=== PATIENT | male | born 1955 | race Caucasian/White ===

== ENCOUNTER → 2023-08-27 07:25 | Outpatient (REF) | payer OTHER, SELFPAY | LOC: PAVMRI 07:25 | PROVIDERS: ATTENDING PHYSICIAN Internal Medicine Cardiovascular Disease; FAMILY PHYSICIAN Family Medicine | DX: I25.10 Atherosclerotic heart disease of native coronary artery without angina pectoris (principal) | CPT/HCPCS: 70030; 75561; 75565; A9585 ==

== ENCOUNTER → 2023-12-16 09:17 | Outpatient (REF) | payer OTHER, SELFPAY | LOC: RCS 09:17 | PROVIDERS: ATTENDING PHYSICIAN Internal Medicine Cardiovascular Disease; FAMILY PHYSICIAN Family Medicine | DX: I10 Essential (primary) hypertension (principal); I25.5 Ischemic cardiomyopathy | CPT/HCPCS: 93306; Q9950 ==

== ENCOUNTER → 2024-08-30 06:57 | Outpatient (REF) | payer OTHER, SELFPAY | LOC: RAD 06:57 | PROVIDERS: ATTENDING PHYSICIAN Internal Medicine Cardiovascular Disease | DX: I73.9 Peripheral vascular disease, unspecified (principal) | CPT/HCPCS: 93922; 93925 ==

== ENCOUNTER → 2024-09-08 08:07 | Outpatient (REF) | payer OTHER, SELFPAY | LOC: RAD 08:07 | PROVIDERS: ATTENDING PHYSICIAN Surgery Vascular Surgery; FAMILY PHYSICIAN Family Medicine | DX: I73.9 Peripheral vascular disease, unspecified (principal); Z13.6 Encounter for screening for cardiovascular disorders | CPT/HCPCS: 75635; Q9967 ==

== ENCOUNTER 2024-10-28 08:00 | Emergency (ER) | payer OTHER, SELFPAY ==
[2024-10-28 08:02] VITALS: BP 155/70
--- NOTE | 2024-10-28 08:12 | ED.GENMED ---
History of Present Illness
General
Chief Complaint: Musculo-Skeletal Complaint
Source: patient and spouse
Exam Limitations: none
Time Seen by Provider: 10/28/24 08:05
Nursing documentation reviewed up to this point in time: agreed with
History of Present Illness
History of Present Illness:
69-year-old male with a past medical history of diabetes, CAD status post stents (sees Dr. Duarte for cardiology), PVD (follows with Dr. Keith for vascular surgery) who presents to the ER for evaluation of right foot pain. Patient reports symptoms
started Thursday evening and have been constant since that time (roughly 36 hours duration). He denies any trauma or injury to the foot. He has noticed redness and swelling mostly of the dorsum of the foot. He is having difficulty bearing weight
due to pain. He has not had any calf or knee pain on the right. He denies any chest pain or shortness of breath. Denies any fevers or chills. He denies any other complaints. He is on aspirin and Plavix for CAD.
Review of Systems
Review of Systems
All Other Systems: ROS reviewed and negative except as documented in HPI and ROS
Constitutional: Denies fever
Respiratory: Denies trouble breathing
Cardiac: Denies chest pain
Musculoskeletal: Reports edema (Swelling of the foot and ankle)
Skin: Reports other (Redness of the foot)
Phy Exam
Physical Exam
Physical Exam:
General: Awake, alert, oriented x3; no acute distress
Head: Normocephalic, atraumatic
Eyes: Conjunctiva normal, EOMI
Throat: Airway intact, handling secretions
Neck: Trachea midline, supple without meningismus
Lungs: Breathing comfortably with no respiratory distress, faint scattered expiratory wheezing throughout all lung vaughan
Heart: Regular rate and rhythm, no murmurs, gallops, or rubs appreciated
Neuro: No gross deficits
Skin: Patient has some erythema and warmth on the dorsum of the right foot but no wounds noted, no puncture patel or signs of trauma noted including examination between the toes
Extremities: Patient has swelling, erythema, warmth, tenderness across the entire dorsum of the right foot; also has some tenderness along the instep of the foot, no tenderness of the calcaneus, no tenderness of the medial or lateral malleolus, no
tenderness of the calf or knee on the right; he has strong right DP and PT pulses; left lower extremity no edema, warm and well-perfused
Scores
Heart Failure Risk
Heart Failure Risk Score: Not Applicable
Heart Score for Chest Pain Patients
STEMI patient?: Not applicable
Withdrawal Assessment of Alcohol
Withdrawal Assessment Completed?: Not applicable
Course
Orders/Labs/Results
Orders:
Orders
10/28/24 08:11
CR Foot - Right Min 3 Views Urgent
Comment:
Reason For Exam: midfoot pain and ttp
US Periph Venous LOWER Ext RT Urgent
Comment:
Reason For Exam: RLE pain, redness, swelling
10/28/24 08:16
CRP [C-Reactive Protein] Urgent
Complete Blood Count/With Diff Urgent
Comprehensive Metabolic Panel Urgent
ESR [Erythrocyte Sed Rate] Urgent
PTT Urgent
Prothrombin Time Urgent
10/28/24 08:25
Oxycodone [Roxicodone] 5 mg PO NOW STA
10/28/24 09:57
CeFAZolin 2 GRAM [Ancef] 2 grams in 10 ml IV NOW
10/28/24 09:59
Doxycycline [Vibramycin] 100 mg PO NOW STA
Abnormal Lab Results
10/28/24
08:16
WBC 11.7 H 10^3/uL
(4.8-10.8)
MCH 32.4 H pg
(27.0-31.0)
Absolute Neuts (auto) 9.0 H 10^3/uL
(1.4-6.5)
Absolute Monos (auto) 1.2 H 10^3/uL
(0.1-0.6)
Neutrophils % 76.7 H %
(42.2-75.2)
Lymphocytes % 12.1 L %
(20.5-51.1)
Monocytes % 9.8 H %
(1.7-9.3)
Glucose 192 H mg/dl
(70-99)
C-Reactive Protein 15.00 H mg/L
(0.0-10.00)
10/28/24 08:16
10/28/24 08:16
Vital Signs
Initial and Last Documented VS:
Initial Vital Signs
Temp Pulse Resp BP Pulse Ox
36.5 C 85 18 155/70 95
10/28/24 08:02 10/28/24 08:02 10/28/24 08:02 10/28/24 08:02 10/28/24 08:02
Last Documented Vital Signs
Temp Pulse Resp BP Pulse Ox
36.5 C 85 18 149/66 95
10/28/24 08:02 10/28/24 08:02 10/28/24 08:02 10/28/24 08:15 10/28/24 08:16
MDM/Problems Addressed
Differential Diagnosis Includes:
DVT, cellulitis, occult trauma; lower suspicion for arterial insufficiency/claudication given that leg is warm with good pulses
MDM/Problems Addressed:
69-year-old male presents for evaluation of atraumatic right foot pain x 36 hours. Vitals and exam as above. Will plan to check x-ray. Right lower extremity ultrasound to rule out DVT. Check basic labs, inflammatory markers. Reassess after the
above.
X-ray reviewed by me shows no acute fracture or other acute pathology. Ultrasound of the leg shows no DVT. Labs reviewed he does have a slight leukocytosis with WBC of 11.7 and predominant neutrophils. His CRP is elevated. At this point clinical
suspicion is for cellulitis. He does have some dry cracked skin on the feet which could be a portal for bacterial injury. He does have some risk factors for failure of oral antibiotics including diabetes and peripheral vascular disease�had a long
discussion with patient and his . He feels comfortable trialing an oral antibiotic as an outpatient but will return if symptoms or not improving or if they are worsening. Using shared decision making we will discharge with a trial of oral
antibiotics. Will cover with Keflex and doxycycline for strep and MRSA coverage. All questions answered.
Chronic conditions affecting care:
Diabetes, PAD
Acute Exacerbation and/or Progression of Chronic Illness:
Acutely hypertensive without signs or symptoms of hypertensive crisis�no indication for emergent antihypertensives
Acute Exacerbation and/or Progression of Chronic Illness: HTN
*Radiology
Radiology exam reviewed: radiology read reviewed
*Pulse Oximetry
Patient hypoxic: no
*Critical Care Note
Total Time (30-74mins, 75-104mins- exclusive of procedures): Not Applicable
Data Reviewed
Source: patient and spouse
Patient Management
Escalation/DeEscalation of care consider admission/obs:
Considered admission�shared decision making we will discharge with strict return precautions
ED Attending Note
-
Portions of this chart may have been created with voice recognition software.� Occasional wrong word or��sound alike� substitutions may have occurred due to the inherent limitations of voice recognition software.
Discharge Plan
Departure
Patient Disposition: Home (Routine Discharge)
Date of Disposition: 10/28/24
Time of Disposition: 09:59
Patient with high blood pressure during this ER visit?: Yes
Discharge Problem:
Cellulitis
Instructions: Cellulitis (skin infection) in adults - ED discharge instructions
Prescriptions:
New
cephalexin 500 mg capsule
500 mg PO TID 7 Days Qty: 21 0RF
doxycycline hyclate 100 mg capsule
100 mg PO BID Qty: 14 0RF
oxycodone 5 mg tablet
5 mg PO TID PRN (Reason: Pain) Qty: 10 0RF
Referrals:
Nina Brady MD [Family Provider] - Follow up in 5-7 days
Activity Restrictions/Additional Instructions:
If your symptoms are worsening or if they are not improving after 2 or 3 days of antibiotics you should return to the emergency room to be reassessed. Otherwise you should follow-up with your primary doctor within the next week.
Thank you for visiting the Emergency Department at [facility].
1. Please schedule a follow up appointment as directed. Call first thing tomorrow morning to make an appointment.
2. If indicated, please take your medications as instructed and indicated on discharge paperwork.
3. If any of your symptoms do not improve, or persist, or become more severe within 6-12 hours, please return to the emergency department for further care.
4. Please return to the emergency department if you develop a headache, neck pain/stiffness, fever greater than 100.4F, chest pain, shortness of breath, persistent nausea, vomiting, slurred speech, difficulty walking, numbness/tingling, weakness,
signs of infection or any other symptoms that are worrisome to you.
Please call [phone] if you have any questions.
Interventions
Interventions:
*Risk Screen - Suicide Last Done: 10/28/24 08:02
*General Assessment Last Done: 10/28/24 08:02
*Neglect/Abuse Screening Last Done: 10/28/24 08:02
*ED COVID-19 Vaccine History Last Done: 10/28/24 08:14
ED-Musculoskeletal Assessment Last Done: 10/28/24 08:14
Discharge Date and Time
Print Language: IRANIAN
[2024-10-28 08:14] VITALS: BMI 26.6
[2024-10-28 08:15] VITALS: BP 149/66
[2024-10-28 08:28] LABS: % Basophils 0.4 % (0-2); % Eosinophils 0.7 % (0-6); % Immature Granulocytes 0.3 % (0-0.5); % Lymphocytes 12.1 % (20.5-51.1); % Monocytes 9.8 % (1.7-9.3); % Neutrophils 76.7 % (42.2-75.2); Absolute Basophils 0.1 10^3/uL (0-0.2); Absolute Eosinophils 0.1 10^3/uL (0-0.7); Absolute Lymphocytes 1.4 10^3/uL (1.2-3.4); Absolute Monocytes 1.2 10^3/uL (0.1-0.6); Hematocrit 43.5 % (39.0-52.0); Hemoglobin 15.5 g/dL (13.0-18.0); Mean Corp Hgb Conc. 35.6 g/dL (33.0-37.0); Mean Corpuscular Hgb 32.4 pg (27.0-31.0); Mean Platelet Volume 9.3 fL (7.4-10.4); Nucleated Red Blood Cells % 0 % (-); Platelet Count 239 10^3/uL (130-400); Red Blood Cell Count 4.78 10^6/uL (4.70-6.10); Red Cell Dist. Width 12.3 % (11.5-14.5); White Blood Cell Count 11.7 10^3/uL (4.8-10.8)
[2024-10-28 08:43] LABS: PT 13.5 Sec (11.4-14.6)
[2024-10-28 08:44] LABS: ALT (SGPT) 27 U/L (0-50); APTT 29.7 Sec (23.4-35.0); AST (SGOT) 22 U/L (17-59); Albumin 4.3 g/dl (3.5-5.0); Alkaline Phosphatase 69 U/L (38-126); Blood Urea Nitrogen 20 mg/dl (9-20); Calcium 9.5 mg/dl (8.4-10.2); Carbon Dioxide 24 mmol/L (22-30); Chloride 103 mmol/L (98-107); Estimated Creatinine Clearance 85 ml/min; Glucose 192 mg/dl (70-99); Potassium 4.2 mmol/L (3.5-5.1); Sodium 136 mmol/L (135-145); Total Bilirubin 0.9 mg/dl (0.2-1.3); Total Protein 6.7 g/dl (6.3-8.2); eGFR > 60.00
[2024-10-28 08:50] LABS: Erythrocyte Sed Rate 4 mm/hour (0-20)
[2024-10-28] MEDS: ROXICODONE 5 MG PO (09:51)
[2024-10-28] MEDS: ANCEF 10 IV (10:01)
[2024-10-28] MEDS: VIBRAMYCIN 100 MG PO (10:01)
[2024-10-28 10:08] VITALS: BP 124/56
== END 2024-10-28 10:13 | disposition home or self-care (01) ==
LOC: EMR 08:00
PROVIDERS: EMERGENCY PHYSICIAN Emergency Medicine; FAMILY PHYSICIAN Family Medicine
DX: L03.115 Cellulitis of right lower limb (principal); I25.10 Atherosclerotic heart disease of native coronary artery without angina pectoris; I10 Essential (primary) hypertension; E11.51 Type 2 diabetes mellitus with diabetic peripheral angiopathy without gangrene; Z79.02 Long term (current) use of antithrombotics/antiplatelets; Z79.82 Long term (current) use of aspirin; Z95.5 Presence of coronary angioplasty implant and graft
CPT/HCPCS: 99284; 96374; 73630; 80053; 85025; 85610; 85652; 85730; 86140; 93971

== ENCOUNTER → 2024-12-22 08:26 | Outpatient (REF) | payer OTHER, SELFPAY ==
--- NOTE | 2024-12-22 09:10 | CARDSERVLU ---
Echocardiogram with [facility]ason completed after protocol screening completed. Allergies verified.
Patent IV site: _Right median antecubital 22 G PC, site clear____
IV site flushed with 0.9% NaCl pre and post administration.
Diluted bolus method utilized to enhance visualization of ventricular andrews.
Total volume given: _3___ mL
Patient tolerated all procedures well without complications.
Heplock D/C ed at 0908, site clear, no redness, no edema. Pressure held, no bleeding, 2x2 applied and taped. Pt offers no complaints.
== END ==
LOC: RCS 08:26
PROVIDERS: ATTENDING PHYSICIAN Internal Medicine Cardiovascular Disease; FAMILY PHYSICIAN Family Medicine
DX: I25.10 Atherosclerotic heart disease of native coronary artery without angina pectoris (principal)
CPT/HCPCS: 93306; Q9950

== ENCOUNTER 2025-02-09 07:37 | Emergency (ER) | payer OTHER, SELFPAY ==
[2025-02-09 07:42] VITALS: BP 151/78
--- NOTE | 2025-02-09 08:34 | ED.GENMED ---
History of Present Illness
General
Chief Complaint: Abdominal Pain
Source: patient
Exam Limitations: none
Time Seen by Provider: 02/09/25 08:09
Nursing documentation reviewed up to this point in time: agreed with
History of Present Illness
History of Present Illness:
see MDM
Past History
Past History
ED Past Medical History: CAD, HTN, Hypercholesterolemia, NIDDM and Other (PVD)
Social History
Tobacco: Non-smoker
Alcohol: Daily
Drug: None
Review of Systems
Review of Systems
Allergies reviewed?: Yes
All Other Systems: Not applicable
Phy Exam
Physical Exam
Physical Exam:
GENERAL: Alert , in no apparent distress
EYE: pupils equal and reactive
NECK: Supple
ENT: o/p clr, mmm.
CARDIAC: Regular rate and rhythm . no edema
LUNGS: Clear breath sounds bilaterally, no acute respiratory distress, no wheezes/rales/rhonchi
ABDOMEN: Soft, mild RUQ tendneress, no rash, no r/g, no cvat, normal bowel sounds
neg garcia's sign
NEUROLOGICAL: Alert and oriented, no focal neuro deficits
SKIN: Warm and dry, skin intact.
MUSCULOSKELETAL: No edema, well perfused. neg aleisha's sign
PSYCH: Normal and appropriate interaction.
Course
Orders/Labs/Results
Orders:
Orders
02/09/25 08:32
Electrocardiogram (*1) Urgent
Reason for Study: Abdominal Pain
EKG- Treatment ONCE
US Abdomen Complete/Upper Urgent
Comment:
Reason For Exam: RUQ pain x 2 weeks
02/09/25 08:35
Complete Blood Count/With Diff Urgent
Comprehensive Metabolic Panel Urgent
Lipase Urgent
02/09/25 08:36
Urinalysis Reflex To Culture Urgent
Date Specimen was Collected: 02/09/25
Time Specimen was Collected: 08:34
Urine Microscopic Reflex Cult Urgent
02/09/25 09:04
Troponin I Urgent
02/09/25 10:50
Ketorolac [Toradol] 15 mg IV NOW STA
CR Chest - 2 Views Urgent
Comment:
Reason For Exam: RUQ pain
Abnormal Lab Results
02/09/25 02/09/25
08:35 08:36
RBC 4.65 L 10^6/uL
(4.70-6.10)
MCH 32.5 H pg
(27.0-31.0)
Absolute Monos (auto) 0.7 H 10^3/uL
(0.1-0.6)
Lymphocytes % 20.0 L %
(20.5-51.1)
Glucose 125 H mg/dl
(70-99)
Urine Bacteria (Reflex) Few A
(Negative)
Urine Glucose 4+ A
(Negative)
Urine Albumin (Reflex) 1+ A
(Neg - Trace)
02/09/25 08:35
02/09/25 08:35
Vital Signs
Initial and Last Documented VS:
Initial Vital Signs
Temp Pulse Resp BP Pulse Ox
36.6 C 75 16 151/78 97
02/09/25 07:42 02/09/25 07:42 02/09/25 07:42 02/09/25 07:42 02/09/25 07:42
Last Documented Vital Signs
Temp Pulse Resp BP Pulse Ox
36.6 C 62 18 136/60 94
02/09/25 07:42 02/09/25 10:00 02/09/25 10:00 02/09/25 10:00 02/09/25 10:00
MDM/Problems Addressed
Differential Diagnosis Includes:
see MDM
MDM/Problems Addressed:
Note:
CHIEF COMPLAINT(S)
Abdominal pain for two weeks.
HISTORY OF PRESENT ILLNESS
The patient, a male, presents with abdominal pain located in the right upper quadrant, persisting for approximately two weeks. The pain is constant but varies in intensity, sometimes sharp and sensitive to touch, with a severity rating reaching up
to 8 or 9 out of 10 during exacerbations. The patient has not experienced radiation of the pain to the back. He notes that the pain worsens postprandially sometimes and describes associated symptoms of indigestion. He denies fever, chills, nausea,
vomiting, or rash. The patient suspects a possible link between the pain and his weekly medication, which includes semaglutide, taken for the past year with no recent dose adjustments. He has been using famotidine every morning. The condition has
persisted without notable improvement, prompting todays visit as there has been no resolution, and the discomfort might be slightly worse. Pain assessment at the time of evaluation rates as 6 out of 10.
CHRONIC MEDICAL CONDITIONS SIGNIFICANTLY AFFECTING CARE
- Diabetes mellitus
- Hypertension
- Hyperlipidemia
- History of myocardial infarction with inoperable coronary artery disease due to blocked vessels, managed medically by a truck striker.
- Peripheral vascular disease with reduced circulation noted more on the left lower extremity.
SOCIAL DETERMINANTS AFFECTING HEALTH
Regular alcohol consumption, drinks whiskey mixed with cola almost daily.
MEDICATIONS
- Semaglutide 0.05 mg once weekly
- Famotidine taken daily
- Aspirin taken once daily
REVIEW OF SYSTEMS
- Gastrointestinal: Right upper quadrant abdominal pain, indigestion.
- General: Denies fever and chills.
- Respiratory: Sometimes experiences pain upon deep breathing.
- Skin: Denies rash, but indicates tenderness and sensitivity to touch on the affected area.
PHYSICAL EXAM
- General: Patient appears in some distress due to abdominal pain.
- Abdomen: Tenderness in the right upper quadrant upon touch.
no rash
- Respiratory: Pain noted with deep breathing.
Nursing notes reviewed and vital signs reviewed.
PROBLEM LIST
- Acute: Right upper quadrant abdominal pain, possible gallstone suspected.
- Chronic: Diabetes mellitus, hypertension, hyperlipidemia, coronary artery disease, peripheral vascular disease.
PLAN
- Initiate blood work and abdominal ultrasound to evaluate for gallstones or gallbladder issues.
- Offer pain management options if the patient reports worsening pain.
DIFFERENTIAL DIAGNOSIS
The Differential Diagnosis includes, in no particular order and is not limited to:
1. Cholelithiasis
2. Cholecystitis
3. Peptic ulcer disease
4. Gastritis
5. Pancreatitis
6. Hepatitis
7. Myocardial ischemia
8. Gastroesophageal reflux disease
9. Biliary colic
10. Hepatic abscess
02/09/25 - 10:50
- Blood work results are normal, including electrolytes and liver markers.
- Ultrasound confirms presence of gallstones in the gallbladder; no signs of infection present.
- Symptoms have persisted for two weeks, prompting consideration of surgical intervention. However, hospitalization is not required at present given the lack of bile duct blockage or infection.
- Patient opts for dietary modification as a preliminary approach, focusing on a low-fat diet to alleviate symptoms.
- Consultation with a surgeon recommended; patient advised to schedule an outpatient appointment due to potential wait times.
- To rule out other causes of discomfort, a chest x-ray is ordered to check for any fluid accumulation in the lungs or other structural issues.
- Patient declines immediate gallbladder removal, preferring to monitor symptom improvement with dietary changes.
- Treatment plan includes offering Toradol for pain management to avoid exacerbating acid reflux.
- 11:59
Patient reports feeling okay and desires to go home. Follow-up with surgeon recommended in two to three weeks for gallbladder consultation to discuss potential removal, depending on symptom severity. Patient advised on possible causes of current
symptoms, including gallbladder issues, acid reflux, or nerve pain from spinal stenosis. Existing spinal stenosis in lower back noted; pain unlikely related unless issues in upper spine. Advised to monitor for new symptoms, such as a bumpy rash,
which could indicate shingles, or any weakness in limbs, fever, or vomiting, and to consult family doctor if these develop. Recommendation for diet modification to limit fats and alcohol intake.
*Pulse Oximetry
SaO2: 97
Oxygen Mode of Delivery: Room air
Patient hypoxic: no
*Critical Care Note
Total Time (30-74mins, 75-104mins- exclusive of procedures): Not Applicable
ED Attending Note
-
Portions of this chart may have been created with voice recognition software.� Occasional wrong word or��sound alike� substitutions may have occurred due to the inherent limitations of voice recognition software.
Discharge Plan
Departure
Patient Disposition: Home (Routine Discharge)
Date of Disposition: 02/09/25
Time of Disposition: 11:37
Patient with high blood pressure during this ER visit?: No
Condition: Fair
Covid-19: Not Applicable
Discharge Problem:
Cholelithiasis, Fatty liver
Instructions: Gallstones (DC)
Prescriptions:
No Action
cephalexin 500 mg capsule
500 mg PO TID 7 Days Qty: 21 0RF
doxycycline hyclate 100 mg capsule
100 mg PO BID Qty: 14 0RF
oxycodone 5 mg tablet
5 mg PO TID PRN (Reason: Pain) Qty: 10 0RF
Referrals:
Nina Brady MD [Family Provider, Family Practice]
Venancio Hogan MD [Active, Surgical] - Follow up in 10 days
Activity Restrictions/Additional Instructions:
TRY MODIFYING YOUR DIET TO LOW-FAT TO SEE IF THIS HELPS YOUR PAIN
MAKE APPT WITH SURGEON JUST IN CASE
YOU HAVE GALLSTONES THAT MAY REQUIRE YOUR GALLBLADDER TO BE REMOVED
RETURN FOR: SEVERE PAIN, SHORTNESS OF BREATH, FEVER, VOMITING, OR ANY CONCERNS.
Interventions
Interventions:
*Risk Screen - Suicide Last Done: 02/09/25 07:42
*General Assessment Last Done: 02/09/25 08:22
*Neglect/Abuse Screening Last Done: 02/09/25 07:42
*ED- Fall Risk Assessment Last Done: 02/09/25 08:22
*ED COVID-19 Vaccine History Last Done: 02/09/25 08:22
IN-Ikucup-Yqzctvsogv Assessment Last Done: 02/09/25 08:28
Discharge Date and Time
Print Language: UKRAINIAN
[2025-02-09 08:44] VITALS: BP 126/70
[2025-02-09 08:53] LABS: Hematocrit 42.8 % (39.0-52.0); Hemoglobin 15.1 g/dL (13.0-18.0); Mean Corp Hgb Conc. 35.3 g/dL (33.0-37.0); Mean Corpuscular Volume 92.0 fL (80.0-94.0); Nucleated Red Blood Cells % 0 % (-); Platelet Count 259 10^3/uL (130-400); Red Cell Dist. Width 12.8 % (11.5-14.5)
[2025-02-09 08:59] LABS: Urine Character Clear (Clear)
[2025-02-09 09:00] VITALS: BP 138/60
[2025-02-09 09:05] LABS: Urine Squamous Cell 0-2 /LPF (Few)
[2025-02-09 09:06] LABS: Urine Red Blood Cell 0-2 /HPF (0-2); Urine White Cell 0-2 /HPF (0-5)
[2025-02-09 09:07] LABS: ALT (SGPT) 31 U/L (0-50); AST (SGOT) 23 U/L (17-59); Albumin 4.1 g/dl (3.5-5.0); Alkaline Phosphatase 63 U/L (38-126); Blood Urea Nitrogen 19 mg/dl (9-20); Calcium 9.4 mg/dl (8.4-10.2); Carbon Dioxide 24 mmol/L (22-30); Chloride 107 mmol/L (98-107); Glucose 125 mg/dl (70-99); Lipase 87 U/L (23-300); Potassium 4.1 mmol/L (3.5-5.1); Sodium 136 mmol/L (135-145); Total Protein 6.5 g/dl (6.3-8.2); eGFR > 60.00
[2025-02-09 09:42] LABS: Troponin I < 0.012 ng/ml
[2025-02-09 09:48] VITALS: BP 140/65
[2025-02-09 10:00] VITALS: BP 136/60
[2025-02-09] MEDS: TORADOL 15 MG IV (11:12)
== END 2025-02-09 12:00 | disposition home or self-care (01) ==
LOC: EMR 07:37
PROVIDERS: Physician Assistant; EMERGENCY PHYSICIAN Emergency Medicine; FAMILY PHYSICIAN Family Medicine
DX: K80.20 Calculus of gallbladder without cholecystitis without obstruction (principal); K76.0 Fatty (change of) liver, not elsewhere classified; E78.00 Pure hypercholesterolemia, unspecified; E11.51 Type 2 diabetes mellitus with diabetic peripheral angiopathy without gangrene; I10 Essential (primary) hypertension; I25.10 Atherosclerotic heart disease of native coronary artery without angina pectoris; I25.2 Old myocardial infarction; Z79.82 Long term (current) use of aspirin
CPT/HCPCS: 96374; 99285; 71046; 76700; 80053; 81003; 81015; 83690; 84484; 85025; 93005

== ENCOUNTER → 2025-03-23 10:55 | Outpatient (REF) | payer OTHER, SELFPAY | LOC: RAD 10:55 | PROVIDERS: ATTENDING PHYSICIAN Surgery Vascular Surgery; FAMILY PHYSICIAN Family Medicine | DX: I73.9 Peripheral vascular disease, unspecified (principal) | CPT/HCPCS: 93922; 93925 ==

== ENCOUNTER 2025-04-01 06:56 | Emergency (ER) | payer OTHER, SELFPAY ==
[2025-04-01 07:01] VITALS: BP 157/72
[2025-04-01 07:49] VITALS: BMI 28.3
[2025-04-01 07:56] VITALS: BP 131/71
[2025-04-01 08:29] LABS: Hematocrit 43.4 % (39.0-52.0); Hemoglobin 15.7 g/dL (13.0-18.0); Mean Corp Hgb Conc. 36.2 g/dL (33.0-37.0); Mean Corpuscular Volume 91.4 fL (80.0-94.0); Nucleated Red Blood Cells % 0 % (-); Platelet Count 245 10^3/uL (130-400); Red Cell Dist. Width 12.4 % (11.5-14.5)
[2025-04-01 08:36] LABS: ALT (SGPT) 22 U/L (0-50); AST (SGOT) 16 U/L (17-59); Albumin 4.4 g/dl (3.5-5.0); Alkaline Phosphatase 79 U/L (38-126); Blood Urea Nitrogen 12 mg/dl (9-20); Calcium 9.8 mg/dl (8.4-10.2); Carbon Dioxide 27 mmol/L (22-30); Chloride 101 mmol/L (98-107); Estimated Creatinine Clearance 82 ml/min; Glucose 133 mg/dl (70-99); Potassium 4.3 mmol/L (3.5-5.1); Sodium 135 mmol/L (135-145); Total Protein 7.0 g/dl (6.3-8.2); eGFR > 60.00
--- NOTE | 2025-04-01 08:40 | ED.GENMED ---
History of Present Illness
<Altaf Mccann PA-C - Last Filed: 04/01/25 14:19>
General
Chief Complaint: Musculo-Skeletal Complaint
Time Seen by Provider: 04/01/25 07:32
History of Present Illness
History of Present Illness:
69-year-old male presents to the emergency department for evaluation of bilateral neck pain ongoing for the past several days. He reports that it began as right-sided neck pain causing limitation of range of motion however gradually worsened and
now he has severe pain with any degree of neck range of motion. He also feels as though he has 'chest congestion' that he cannot cough up but denies chest pain or shortness of breath. Awoke this morning with leg swelling bilaterally. Does admit
to being sedentary recently since the neck pain began. No falls or neck injuries. No headaches, vision changes, fever, or night sweats.
Past History
<Altaf Mccann PA-C - Last Filed: 04/01/25 14:19>
Past History
ED Past Medical History: CAD, HTN, Hypercholesterolemia, NIDDM and Other (PVD)
Social History
Tobacco: Non-smoker
Alcohol: Daily
Drug: None
Review of Systems
<Altaf Mccann PA-C - Last Filed: 04/01/25 14:19>
Review of Systems
Allergies reviewed?: Yes
All Other Systems: ROS reviewed and negative except as documented in HPI and ROS
Phy Exam
<Altaf Mccann PA-C - Last Filed: 04/01/25 14:19>
Physical Exam
Physical Exam:
GEN: Well appearing, NAD, WDWN
HEENT: Oral mucosa moist, no scleral icterus, oropharynx clear, ulceration noted to the right buccal mucosa lower aspect adjacent to the molar
Cardiac: Regular rate and rhythm, no murmurs
Lung: No respiratory distress, no tachypnea, lungs clear to auscultation bilaterally
MSK: No gross deformity or injuries, trace ankle edema bilaterally, DP pulses are strong
Skin: Good color, no pallor or jaundice, no rashes
Neuro: AO x3, moves all extremities freely
Psych: Calm, cooperative
Course
<Altaf Mccann PA-C - Last Filed: 04/01/25 14:19>
Orders/Labs/Results
Orders:
Orders
04/01/25 07:04
EKG [Electrocardiogram (*1)] Urgent
Reason for Study: Other
Other Reason for Exam: neck and shoulder pain
EKG- Treatment ONCE
04/01/25 08:01
CR Chest - 2 Views Urgent
Comment:
Reason For Exam: cough
04/01/25 08:14
Complete Blood Count/With Diff Urgent
Comprehensive Metabolic Panel Urgent
NT-proBNP Urgent
Troponin I Urgent
Blood Culture Q30M
MATT Source: Blood/Venous
Specimen Description:
Blood Culture Q30M
MATT Source: Blood/Venous
Specimen Description:
04/01/25 08:23
Morphine Sulfate 4 mg IV NOW STA
04/01/25 09:06
diazePAM [Valium Injection] 2 mg IV NOW STA
Abnormal Lab Results
04/01/25
08:14
WBC 12.9 H 10^3/uL
(4.8-10.8)
MCH 33.1 H pg
(27.0-31.0)
Abs Immat Gran (auto) 0.1 H 10^3/uL
(0-0.05)
Absolute Neuts (auto) 10.3 H 10^3/uL
(1.4-6.5)
Absolute Monos (auto) 1.3 H 10^3/uL
(0.1-0.6)
Neutrophils % 79.7 H %
(42.2-75.2)
Lymphocytes % 9.1 L %
(20.5-51.1)
Monocytes % 10.3 H %
(1.7-9.3)
Glucose 133 H mg/dl
(70-99)
AST 16 L U/L
(17-59)
04/01/25 08:14
04/01/25 08:14
Vital Signs
Initial and Last Documented VS:
Initial Vital Signs
Temp Pulse Resp BP Pulse Ox
98.0 F 87 18 157/72 98
04/01/25 07:01 04/01/25 07:01 04/01/25 07:01 04/01/25 07:01 04/01/25 07:01
Last Documented Vital Signs
Temp Pulse Resp BP Pulse Ox
98.0 F 76 15 139/66 98
04/01/25 07:01 04/01/25 10:45 04/01/25 10:45 04/01/25 10:00 04/01/25 08:42
<Momo Mckee, DO - Last Filed: 04/01/25 09:33>
Orders/Labs/Results
Orders:
Orders
04/01/25 07:04
EKG [Electrocardiogram (*1)] Urgent
Reason for Study: Other
Other Reason for Exam: neck and shoulder pain
EKG- Treatment ONCE
04/01/25 08:01
CR Chest - 2 Views Urgent
Comment:
Reason For Exam: cough
04/01/25 08:14
Complete Blood Count/With Diff Urgent
Comprehensive Metabolic Panel Urgent
NT-proBNP Urgent
Troponin I Urgent
Blood Culture Q30M
MATT Source: Blood/Venous
Specimen Description:
Blood Culture Q30M
MATT Source: Blood/Venous
Specimen Description:
04/01/25 08:23
Morphine Sulfate 4 mg IV NOW STA
04/01/25 09:06
diazePAM [Valium Injection] 2 mg IV NOW STA
Abnormal Lab Results
04/01/25
08:14
WBC 12.9 H 10^3/uL
(4.8-10.8)
MCH 33.1 H pg
(27.0-31.0)
Abs Immat Gran (auto) 0.1 H 10^3/uL
(0-0.05)
Absolute Neuts (auto) 10.3 H 10^3/uL
(1.4-6.5)
Absolute Monos (auto) 1.3 H 10^3/uL
(0.1-0.6)
Neutrophils % 79.7 H %
(42.2-75.2)
Lymphocytes % 9.1 L %
(20.5-51.1)
Monocytes % 10.3 H %
(1.7-9.3)
Glucose 133 H mg/dl
(70-99)
AST 16 L U/L
(17-59)
04/01/25 08:14
04/01/25 08:14
Vital Signs
Initial and Last Documented VS:
Initial Vital Signs
Temp Pulse Resp BP Pulse Ox
98.0 F 87 18 157/72 98
04/01/25 07:01 04/01/25 07:01 04/01/25 07:01 04/01/25 07:01 04/01/25 07:01
Last Documented Vital Signs
Temp Pulse Resp BP Pulse Ox
98.0 F 76 15 139/66 98
04/01/25 07:01 04/01/25 10:45 04/01/25 10:45 04/01/25 10:00 04/01/25 08:42
<Altaf Mccann PA-C - Last Filed: 04/01/25 14:19>
MDM/Problems Addressed
MDM/Problems Addressed:
Workup was broadly unremarkable. The patient does have significant neck muscle rigidity and tension limiting his range of motion but no midline bony tenderness and no traumatic injuries to suggest need for imaging to rule out fracture. Symptoms
did modestly improve with IV diazepam thus we will plan to treat with muscle relaxants and a course of steroids
<Altaf Mccann PA-C - Last Filed: 04/01/25 14:19>
Comment
Comment:
EKG independently interpreted by me shows normal sinus rhythm at a rate of [address]ressions however these are comparable to past EKG tracing from January 2025
*Pulse Oximetry
SaO2: 98
Patient hypoxic: no
*Critical Care Note
Total Time (30-74mins, 75-104mins- exclusive of procedures): Not Applicable
ED Attending Note
<Altaf Mccann PA-C - Last Filed: 04/01/25 14:19>
-
Portions of this chart may have been created with voice recognition software.� Occasional wrong word or��sound alike� substitutions may have occurred due to the inherent limitations of voice recognition software.
<Momo Mckee DO - Last Filed: 04/01/25 09:33>
ED Attending Note
Patient seen and examined by attending physician: Yes
I performed the substantive portion of visit, reviewed & personally made and approve the management plan that is documented in note by myself or RENE.: Yes
ED Attending Note:
69-year-old male presents with neck stiffness and pain. States several days ago he reached down in his shed to grab something and felt a strain on his left side of his neck. [facility] like it was getting better but then started to realize he his neck
hurt on both sides. Now does report it is worse left than right and has difficulty turning his head to the right or left. No fevers. Does mention he had a dental procedure but was put on clindamycin afterward. No rash. No motor weakness. Pain
does radiate a little bit down the left shoulder but no motor weakness in the hands or arms bilaterally. No leg symptoms. No chest pain. Exam: Clearly has tenderness and spasm noted to the trapezius bilaterally. Limited range of motion of the
neck. No rash. No fever. Heart regular without murmur lungs are clear to auscultation. Assessment and plan: Question musculoskeletal issue versus other. Do not suspect deep space infection in light of no fevers and the fact that he was already
covered with clindamycin. Does admit to a strain that occurred while reaching down. Trial muscle relaxation and reassess
Discharge Plan
Departure
Patient Disposition: Home (Routine Discharge)
Date of Disposition: 04/01/25
Time of Disposition: 10:36
Patient with high blood pressure during this ER visit?: No
Discharge Problem:
Spasm of both trapezius muscles
Instructions: Muscle spasm - ED (DC)
Prescriptions:
New
methylprednisolone [Medrol (Andre)] 4 mg tablets,dose pack
See Rx Instructions .ROUTE .COMPLEX Qty: 21 0RF
Rx Instructions:
orally per package directions
methocarbamol 750 mg tablet
750 mg PO Q8H Qty: 20 0RF
No Action
cephalexin 500 mg capsule
500 mg PO TID 7 Days Qty: 21 0RF
doxycycline hyclate 100 mg capsule
100 mg PO BID Qty: 14 0RF
oxycodone 5 mg tablet
5 mg PO TID PRN (Reason: Pain) Qty: 10 0RF
Referrals:
Nina Brady MD [Family Provider, Family Practice]
Interventions
Interventions:
*Risk Screen - Suicide Last Done: 04/01/25 07:03
*General Assessment Last Done: 04/01/25 07:50
*Neglect/Abuse Screening Last Done: 04/01/25 07:03
*ED- Fall Risk Assessment Last Done: 04/01/25 11:19
*ED COVID-19 Vaccine History Last Done: 04/01/25 07:51
*Nursing Disposition Last Done: 04/01/25 11:19
ED-Musculoskeletal Assessment Last Done: 04/01/25 09:00
Discharge Date and Time
Discharge Date/Time: 04/01/25 11:10
Print Language: TELUGU
[2025-04-01 08:47] LABS: Troponin I < 0.012 ng/ml
[2025-04-01] MEDS: MORPHINE SULFATE 4 MG IV (08:57)
[2025-04-01 09:03] VITALS: BP 140/63
[2025-04-01] MEDS: VALIUM INJECTION 2 MG IV (09:13)
[2025-04-01 10:00] VITALS: BP 139/66
== END 2025-04-01 11:10 | disposition home or self-care (01) ==
LOC: EMR 06:56
PROVIDERS: Physician Assistant; EMERGENCY PHYSICIAN Emergency Medicine; FAMILY PHYSICIAN Family Medicine
DX: M62.838 Other muscle spasm (principal); E11.51 Type 2 diabetes mellitus with diabetic peripheral angiopathy without gangrene; I25.10 Atherosclerotic heart disease of native coronary artery without angina pectoris; I10 Essential (primary) hypertension; E78.00 Pure hypercholesterolemia, unspecified
CPT/HCPCS: 99284; 96374; 96375; 71046; 80053; 83880; 84484; 85025; 87040; 93005

== ENCOUNTER 2025-07-03 09:54 | Observation (INO) | payer OTHER, SELFPAY ==
[2025-07-03 05:14] VITALS: BP 154/78
--- NOTE | 2025-07-03 05:49 | ED.GENMED ---
History of Present Illness
<Vani Borjas MD, Resident - Last Filed: 07/03/25 07:43>
General
Chief Complaint: Skin Problem
Source: patient and significant other
Exam Limitations: none
Time Seen by Provider: 07/03/25 05:22
Nursing documentation reviewed up to this point in time: agreed with
History of Present Illness
History of Present Illness:
70yo M with a hx of T2DM, HTN, HLD, & CVD who presents with 1 day of swelling and pain in the L distal dorsal forearm/wrist.
Pt reports that yesterday evening he began experiencing pain, redness, and swelling in the L distal dorsal forearm/wrist. Did not apply ice or take any pain meds. This morning, the sx had not improved and he felt numbness/tingling in his L hand. The
numbness is worse on the radial aspect of the hand (first 3 digits). Patient was using a chainsaw yesterday but denies any exposure to new plants/environmental exposures or anything breaking the skin. Has a dog at home but denies any animal bites.
Denies any KENISHA in L axilla or L side neck. Denies any fever/chills. Does not feel that the L wrist is warm. States that his pain is 5/10 at rest and 9/10 with flexion of the wrist. Wrist feels tight.
Past History
<Vani Borjas MD, Resident - Last Filed: 07/03/25 07:43>
Past History
ED Past Medical History: CAD, HTN, Hypercholesterolemia, NIDDM and Other (PVD)
Social History
Tobacco: Non-smoker
Alcohol: Daily
Drug: None
Review of Systems
<Vani Borjas MD, Resident - Last Filed: 07/03/25 07:43>
Review of Systems
Other source history: family
Constitutional: Reports no symptoms
EENT: Reports no symptoms
Respiratory: Reports no symptoms
Cardiac: Reports no symptoms
ABD/GI: Reports no symptoms
: Reports no symptoms
Musculoskeletal: Reports joint pain, joint swelling and muscle pain
Skin: Reports other (erythema over L dorsal distal arm/wrist )
Neurological: Reports no symptoms
Psychiatric: Reports no symptoms
Phy Exam
<Vani Borjas MD, Resident - Last Filed: 07/03/25 07:43>
General Physical Exam
General Presentation: mild distress
General age: appears stated age
General Skin: warm and dry
General Habitus: normal
General Mental: alert
General Hydration: appears well hydrated
Cardiovascular Exam
Cardiovascular Exam: regular rate/rhythm and no edema
Pulmonary Exam
Pulmonary Exam: no respiratory distress
Gastrointestinal Exam
Gastrointestinal Exam: non distended
Neurological Exam
Neurological Exam: alert, oriented x3, no motor deficits and sensory deficit (diminished sensation over digits 1-3 palmar aspect; negative tinel test; unable to perform phalen 2/2 pain-limited wrist flexion )
Musculoskeletal Exam
Musculoskeletal Exam: no edema and other (area of edematous/indurated/raised erythematous soft tissue on lateral aspect of dorsal, distal L forearm, extending over the wrist and into proximal hand; L radial pulse strong; overlying skin not warm;
areas of small overlying shallow cuts w scabs but no wounds)
Skin Exam
Skin Exam: erythema (L wrist)
Psychiatric Exam
Psychiatric Exam: normal mood/affect
Course
<Vani Borjas MD, Resident - Last Filed: 07/03/25 07:43>
Orders/Labs/Results
Orders:
Orders
07/03/25 06:37
Acetaminophen [Tylenol] 650 mg PO NOW STA
Wrist, Left 3 Views CR [CR Wrist - Left Min 3 Views] Urgent
Comment:
Reason For Exam: L wrist pain, swelling
07/03/25 07:02
Complete Blood Count/With Diff Urgent
Comprehensive Metabolic Panel Urgent
07/03/25 07:44
Oxycodone [Roxicodone] 5 mg PO NOW STA
Abnormal Lab Results
07/03/25
07:02
WBC 12.8 H 10^3/uL
(4.8-10.8)
MCV 94.7 H fL
(80.0-94.0)
MCH 32.5 H pg
(27.0-31.0)
Absolute Neuts (auto) 9.1 H 10^3/uL
(1.4-6.5)
Absolute Monos (auto) 1.1 H 10^3/uL
(0.1-0.6)
Lymphocytes % 17.8 L %
(20.5-51.1)
Sodium 134 L mmol/L
(135-145)
BUN 21 H mg/dl
(9-20)
Glucose 148 H mg/dl
(70-99)
07/03/25 07:02
07/03/25 07:02
Vital Signs
Initial and Last Documented VS:
Initial Vital Signs
Temp Pulse Resp BP Pulse Ox
97.5 F 70 20 154/78 96
07/03/25 05:14 07/03/25 05:14 07/03/25 05:14 07/03/25 05:14 07/03/25 05:14
Last Documented Vital Signs
Temp Pulse Resp BP Pulse Ox
97.5 F 70 20 154/78 96
07/03/25 05:14 07/03/25 05:14 07/03/25 05:14 07/03/25 05:14 07/03/25 05:58
<Shon Salas MD - Last Filed: 07/03/25 07:47>
Orders/Labs/Results
Orders:
Orders
07/03/25 06:37
Acetaminophen [Tylenol] 650 mg PO NOW STA
Wrist, Left 3 Views CR [CR Wrist - Left Min 3 Views] Urgent
Comment:
Reason For Exam: L wrist pain, swelling
07/03/25 07:02
Complete Blood Count/With Diff Urgent
Comprehensive Metabolic Panel Urgent
07/03/25 07:44
Oxycodone [Roxicodone] 5 mg PO NOW STA
Abnormal Lab Results
07/03/25
07:02
WBC 12.8 H 10^3/uL
(4.8-10.8)
MCV 94.7 H fL
(80.0-94.0)
MCH 32.5 H pg
(27.0-31.0)
Absolute Neuts (auto) 9.1 H 10^3/uL
(1.4-6.5)
Absolute Monos (auto) 1.1 H 10^3/uL
(0.1-0.6)
Lymphocytes % 17.8 L %
(20.5-51.1)
Sodium 134 L mmol/L
(135-145)
BUN 21 H mg/dl
(9-20)
Glucose 148 H mg/dl
(70-99)
07/03/25 07:02
07/03/25 07:02
Vital Signs
Initial and Last Documented VS:
Initial Vital Signs
Temp Pulse Resp BP Pulse Ox
97.5 F 70 20 154/78 96
07/03/25 05:14 07/03/25 05:14 07/03/25 05:14 07/03/25 05:14 07/03/25 05:14
Last Documented Vital Signs
Temp Pulse Resp BP Pulse Ox
97.5 F 70 20 154/78 96
07/03/25 05:14 07/03/25 05:14 07/03/25 05:14 07/03/25 05:14 07/03/25 05:58
<Vani Borjas MD, Resident - Last Filed: 07/03/25 07:43>
MDM/Problems Addressed
Differential Diagnosis Includes:
Ddx:
- Cellulitis vs. myositis
- UE DVT (on blood thinner) vs. thrombophlebitis
- Compartment syndrome (pulses strong, not circumferential swelling)
- Carpal tunnel (negative tinel, more dorsal swelling)
- L septic wrist joint - unlikely given no effusion in wrist, swelling is more in soft tissue proximal to wrist joint
MDM/Problems Addressed:
- Tylenol
- CBC, CMP
- XR LUE/wrist
- Consider keflex
<Vani Borjas MD, Resident - Last Filed: 07/03/25 07:43>
*Pulse Oximetry
SaO2: 96
Oxygen Mode of Delivery: Room air
Patient hypoxic: no
*Critical Care Note
Total Time (30-74mins, 75-104mins- exclusive of procedures): Not Applicable
<Vani Borjas MD, Resident - Last Filed: 07/03/25 07:43>
Update Note
Update Note:
7:20am
leukocytosis 12.8 WBC
Will start IV abx for cellulitis & admit for mgmt
ED Attending Note
<Vani Borjas MD, Resident - Last Filed: 07/03/25 07:43>
-
Portions of this chart may have been created with voice recognition software.� Occasional wrong word or��sound alike� substitutions may have occurred due to the inherent limitations of voice recognition software.
<Shon Salas MD - Last Filed: 07/03/25 07:47>
ED Attending Note
Patient seen and examined by attending physician: Yes
I performed a history and physical exam of patient and discussed management with resident, I reviewed resident's note and agree with documented findings and plan of care.: Yes
ED Attending Note:
I have seen and evaluated the patient with a [id number] encounter. I have spoken to the [resident] and involved in the medical history, the physical exam, medical decision making.
Evaluation and management service: agree unless noted differently below.
Results interpretation: agree unless noted differently below.
70-year-old man who is ambidextrous with prior history of cellulitis presenting to the emergency department with concerns for skin infection. Patient states that a few days ago he was chopping wood. He does feel that a piece of wood caught him to
his left wrist. He states that yesterday he noticed some swelling. This morning the swelling and pain worsen. He does have some mild redness to the distal left forearm. No fevers chills. Some tingling especially upon palpation of the area of
swelling. Mild weakness secondary to the pain.
GENERAL: in no acute distress
HEENT: normocephalic
NECK: normal inspection
RESPIRATORY: no respiratory distress
CARDIOVASCULAR: regular rate and rhythm
EXTREMITIES: Left upper extremity, swelling to the distal left forearm, radial aspect of the wrist and base and thenar eminence. Mild warmth. Small area of redness at the radial of the thumb with associated superficial laceration that is scabbed
over. Wrist is not hot tender or red. Very mildly decreased sensation over the median nerve distribution
NEUROLOGIC: awake and alert, moves all extremities
SKIN: warm
70-year-old man presenting to the emergency department with 1 day of swelling and mild warmth to the distal left forearm that has now causing some decreased sensation/paresthesias in the median nerve distribution. Vitals are unremarkable. On exam
he does have some swelling to the distal left forearm with mildly decreased sensation and slight warmth. Concern for cellulitis versus foreign body. No obvious fluctuance to suggest abscess. History and exam not consistent with septic arthritis.
Given that it is involving the hand as well as hide the patient is ambidextrous and how it is spreading I did discuss admission with patient for IV antibiotics. However at this time patient is hesitant for admission. After shared decision making
initial workup will be blood work and x-ray. Will pain control.
Blood work notable for leukocytosis. X-ray per my interpretation with no obvious fracture. Given the swelling and how quickly it spread patient is amenable to admission now. Will give IV antibiotics. Discussed with hospitalist who accepted.
Discharge Plan
Departure
Patient Disposition: Admit
Date of Disposition: 07/03/25
Time of Disposition: 07:43
Admit to doctor: Thien
Presentation/result/management discussed w/ accepting MD/DO: Hospitalist
Patient with high blood pressure during this ER visit?: No
Condition: Fair
Covid-19: Not Applicable
Discharge Problem:
Cellulitis of left wrist
Prescriptions:
No Action
cephalexin 500 mg capsule
500 mg PO TID 7 Days Qty: 21 0RF
doxycycline hyclate 100 mg capsule
100 mg PO BID Qty: 14 0RF
oxycodone 5 mg tablet
5 mg PO TID PRN (Reason: Pain) Qty: 10 0RF
methylprednisolone [Medrol (Andre)] 4 mg tablets,dose pack
See Rx Instructions .ROUTE .COMPLEX Qty: 21 0RF
Rx Instructions:
orally per package directions
methocarbamol 750 mg tablet
750 mg PO Q8H Qty: 20 0RF
Referrals:
Nina Brady MD [Family Provider, Family Practice]
Interventions
Interventions:
*Risk Screen - Suicide Last Done: 07/03/25 05:14
*Neglect/Abuse Screening Last Done: 07/03/25 05:14
Discharge Date and Time
Print Language: ARMENIAN
[2025-07-03] MEDS: TYLENOL 650 MG PO ×2 (06:58→14:37)
[2025-07-03 07:21] LABS: Hematocrit 47.8 % (39.0-52.0); Hemoglobin 16.4 g/dL (13.0-18.0); Mean Corp Hgb Conc. 34.3 g/dL (33.0-37.0); Mean Corpuscular Volume 94.7 fL (80.0-94.0); Nucleated Red Blood Cells % 0 % (-); Platelet Count 280 10^3/uL (130-400); Red Cell Dist. Width 12.8 % (11.5-14.5)
[2025-07-03 07:38] LABS: ALT (SGPT) 32 U/L (0-50); AST (SGOT) 22 U/L (17-59); Albumin 4.7 g/dl (3.5-5.0); Alkaline Phosphatase 90 U/L (38-126); Blood Urea Nitrogen 21 mg/dl (9-20); Calcium 9.6 mg/dl (8.4-10.2); Carbon Dioxide 27 mmol/L (22-30); Chloride 101 mmol/L (98-107); Glucose 148 mg/dl (70-99); Potassium 4.8 mmol/L (3.5-5.1); Sodium 134 mmol/L (135-145); Total Protein 7.3 g/dl (6.3-8.2); eGFR > 60.00
[2025-07-03] MEDS: ROCEPHIN 1000 MG IV (07:54)
[2025-07-03] MEDS: ROXICODONE 5 MG PO ×4 (07:54→21:39)
--- NOTE | 2025-07-03 09:02 | HPS.HSE ---
Family Physician
-
Family Physician: Nina Brady
Chief Complaint
-
Left wrist pain
History of Present Illness
Patient is a pleasant 70 years old with history of type 2 diabetes, hypertension, hyperlipidemia, peripheral vascular disease who came to the ER today with left wrist/forearm pain, started yesterday associated with redness, decreased limitation of
movement, denies any fever or chills, patient states that his blood sugars under control.
Patient seen and examined at bedside, at bedside denies any chest pain or shortness of breath, no abdominal pain, no nausea, no vomiting, no diarrhea or constipation.
Left wrist x-ray came back normal
Patient was given Rocephin in the ER, will be admitted under hospitalist service, started on cefazolin.
Medical History
Past Medical History
Past Medical History: Reports CAD, HTN, Hypercholesterolemia, NIDDM and Other
Additional Past Medical History:
Peripheral vascular disease, coronary artery
Past Surgical History: Reports Other
Additional Past Surgical History:
Benign cardiac right atrial lipoma surgery, patent foramen ovale repair and patch, tonsillectomy
Social History
Tobacco: Non-smoker
Alcohol: Daily
Drug: None
Personal:
Living: With Family
Family History
Family History: Not pertinent
Allergies / Home Medications
Allergies reflects when Allergies were last updated in [facility].
Home Medications with original date entered in [facility]
Allergy/Medication List:
Allergies
Allergy/AdvReac Type Severity Reaction Status Date / Time
codeine Allergy Unknown Verified 07/03/25 05:16
HAIR DYE Allergy Hives Uncoded 07/03/25 05:16
Home Medications
ascorbic acid (vitamin C) 500 mg tablet (Vitamin C) 500 mg PO DAILY Supplement 07/03/25
aspirin 81 mg tablet,delayed release 81 mg PO QPM Heart Disease/Condition 07/03/25
coQ10 (ubiquinol) 100 mg capsule 100 mg PO DAILY Supplement 07/03/25
cyanocobalamin (vitamin B-12) 1,000 mcg tablet 1,000 mcg PO DAILY Supplement 07/03/25
dapagliflozin propanediol 10 mg tablet (Farxiga) 10 mg PO DAILY Diabetes 07/03/25
garlic 400 mg tablet 400 mg PO DAILY Supplement 07/03/25
glipizide 10 mg tablet, extended release 24 hr 10 mg PO DAILY Diabetes 07/03/25
metformin 500 mg tablet,extended release 24 hr 500 mg PO BID Diabetes 07/03/25
metoprolol succinate 25 mg tablet,extended release 24 hr (Toprol XL) 25 mg PO HS Blood Pressure 07/03/25
rosuvastatin 20 mg tablet (Crestor) 20 mg PO QPM High Cholesterol 07/03/25
sacubitril 24 mg-valsartan 26 mg tablet (Entresto) 1 tab PO BID Blood Pressure 07/03/25
semaglutide 0.25 mg or 0.5 mg (2 mg/3 mL) subcutaneous pen injector (Ozempic) 0.25 mg SC LUND Diabetes 07/03/25
terazosin 2 mg capsule 2 mg PO HS BPH 07/03/25
Review of Systems
-
A 12 point ROS was completed and negative except as noted: Yes
Constitutional: Denies Fever, Weight Gain, Weight Loss, Fatigue or Sleep Disturbance
EENT: Denies Tearing, Sore Throat, Mouth Pain, Mouth Swelling or Runny Nose
Respiratory: Denies Cough, Hemoptysis or Trouble Breathing
Cardiac: Denies Chest Pain, Diaphoresis, Palpitations or Syncope
Abdomen/GI: Denies Abdominal Pain, Nausea, Vomiting, Diarrhea, Constipated, Bloody Stools or Black Stools
: Denies Dysuria, Frequency, Flank Pain, Incontinence, Difficulty Voiding, Urgency, Bleeding or Dark Urine
Musculoskeletal: Reports Joint Pain, Joint Swelling, Muscle Pain, Muscle Stiffness and Edema
Skin: Denies Itching or Rash
Neurological: Denies Dizzy, Headache, Weakness or Numbness
Endocrine: Denies Polyuria, Polydipsia or Temp Intolerance
Hematologic/Lymphatic: Denies Bleeding, Swollen Glands or Bruising
Psych: Reports Calm; Denies Depression, Anxiety or Panic Disorder
Physical Exam
Vital Signs
Vital Signs
Temp Pulse Resp BP Pulse Ox
97.5 F 70 20 154/78 96
07/03/25 05:14 07/03/25 05:14 07/03/25 05:14 07/03/25 05:14 07/03/25 05:58
Physical Exam
General: Well Developed, Well Nourished, No Apparent Distress, Comfortable and Good Appetite; No Pain, Chills or Sweats
HEENT: NormoCephalic, Moist mucous membranes, Atraumatic, Good Dentition, PERRLA, Nose Appears Normal and Ears Appear Normal
Respiratory: Clear
Cardiac: S1/S2 and Regular Rhythm
Breast: Deferred by me
GI: Soft, Non Tender, Non Distended and Normal Bowel Sounds
Genito-urinary: Deferred by me
Musculoskeletal: No Clubbing, No Cyanosis and Other (Left wrist with tenderness over mild redness)
Skin: Warm; No Rash, Jaundice, Ulcers, Lesions or Decubitus Ulcers
Neuro: Awake, Alert, Oriented, AO x 3, No Motor Deficits, Nonfocal/grossly intact and Cranial Nerves Intact
Hematologic/Lymphatic: No Lymphadenopathy
Psych: Calm
Laboratory Results
-
07/03/25 07:02
07/03/25 07:02
Laboratory Results
Total Bilirubin 0.7 mg/dl (0.2-1.3) 07/03/25 07:02
AST 22 U/L (17-59) 07/03/25 07:02
ALT 32 U/L (0-50) 07/03/25 07:02
Alkaline Phosphatase 90 U/L (38-126) 07/03/25 07:02
Data Reviewed
-
Diagnostic Radiology: Report Reviewed by me
CT Scan: Report Reviewed by me
Medical Tests (Nuc Med, Echo, EKG etc): Report Reviewed by me
Lab Data: Labs Reviewed by me
Old Records: Reviewed
Impression/Plan
-
IMPRESSION:
70 years old with history of type 2 diabetes, hypertension, hyperlipidemia, peripheral vascular disease who came to the ER today with left wrist/forearm pain, started yesterday associated with redness, decreased limitation of movement, denies any
fever or chills, patient states that his blood sugars under control.
Left wrist x-ray came back normal
Patient was given Rocephin in the ER, will be admitted under hospitalist service, started on cefazolin
Assessment/plan:
Left wrist cellulitis.
Started on cefazolin.
Left wrist x-ray came back normal
If no improvement consider further
Pain control
History�of�diabetes�mellitus
Continue�home�medication
Insulin�sliding�scale
Diabetic�diet
Hemoglobin A1c
History�of�hypertension
Continue home metoprolol
History of hyperlipidemia
Continue�statin
History of PVD
ASA/ Statin
�
CODE STATUS:�Full�code
DVT�prophylaxis:�Lovenox
Diet:�Regular�diet
Family�communication: Discussed with at bedside
Disposition: admit and start cefazolin.
Total�time�spent�on�today�s�encounter�was�75�minutes�which�included�time�spent�in�counseling�the�patient/family�regarding�diagnosis�and�treatment�plan�as�listed�above,�goals�of�care,�and�symptom�management.�Case�was�discussed�with�nursing�staff,�spec
ialists,�and�care�coordinators/case�management.�All�labs�and�imaging�personally�reviewed�by�me.�Remainder�the�time�spent�in�detailed�review�of�previous�records,�lab�data,�imaging,�and�other�medical�provider�documentation.
�
--- NOTE | 2025-07-03 12:44 | EDCM ---
Reviewed chart and met with pt bedside in ED. Lives with his in 2 story home, no JAI. First floor half bath, full flight to second floor bedroom and full bath.
Independent in ADLs, personal care and ambulation at baseline.
Confirms prescription coverage, KC reviewed and signed.
No hx VN or SNF
PCP: Nina Brady
Pharmacy: [facility]
Anticipate discharge home, no needs. CM will continue to follow for all discharge planning needs.
[2025-07-03] MEDS: GLUCOPHAGE XR EXTENDED RELEASE 500 MG PO ×2 (13:28→20:17)
[2025-07-03] MEDS: VITAMIN C 500 MG PO (13:28)
[2025-07-03] MEDS: FARXIGA 10 MG PO (13:28)
[2025-07-03 14:20] VITALS: BP 155/81
--- NOTE | 2025-07-03 15:02 | TRANSFER ---
pt arrived from ED via stretcher. pt ambulated from stretcher to bed without assistance. pt AAOx3, VSS, c/o 6/10 pain in L wrist/ hand area. plan of care ongoing.
[2025-07-03] MEDS: ANCEF 5 IV ×2 (16:19→23:23)
[2025-07-03 17:04] LABS: Glucose - Point of Care 192 mg/dl (70-99)
[2025-07-03] MEDS: ASPIR LOW (ENTERIC COATED) 81 MG PO (17:04)
[2025-07-03] MEDS: CRESTOR 20 MG PO (17:04)
[2025-07-03 19:16] VITALS: BP 143/67
[2025-07-03] MEDS: ENTRESTO 24 MG/26 MG 1 TAB PO (20:17)
[2025-07-03] MEDS: TOPROL XL 25 MG PO (20:17)
[2025-07-03] MEDS: HYTRIN 2 MG PO (20:44)
[2025-07-03 21:38] LABS: Glucose - Point of Care 105 mg/dl (70-99)
[2025-07-03 23:18] VITALS: BP 143/63
[2025-07-04] MEDS: TYLENOL 650 MG PO (00:23)
[2025-07-04 03:46] VITALS: BP 123/61
[2025-07-04] MEDS: ROXICODONE 5 MG PO ×2 (03:47→08:15)
[2025-07-04 07:23] LABS: Glucose - Point of Care 156 mg/dl (70-99)
[2025-07-04] MEDS: ENTRESTO 24 MG/26 MG 1 TAB PO (08:01)
[2025-07-04] MEDS: GLUCOTROL XL (EXTENDED RELEASE) 10 MG PO (08:02)
[2025-07-04] MEDS: VITAMIN B-12 1000 MCG PO (08:03)
[2025-07-04] MEDS: VITAMIN C 500 MG PO (08:03)
[2025-07-04] MEDS: FARXIGA 10 MG PO (08:03)
[2025-07-04] MEDS: ANCEF 5 IV ×2 (08:03→14:16)
[2025-07-04] MEDS: GLUCOPHAGE XR EXTENDED RELEASE 500 MG PO (08:03)
[2025-07-04 08:26] VITALS: BP 138/58
[2025-07-04 09:23] LABS: Hematocrit 45.6 % (39.0-52.0); Hemoglobin 15.8 g/dL (13.0-18.0); Mean Corp Hgb Conc. 34.6 g/dL (33.0-37.0); Mean Corpuscular Volume 92.5 fL (80.0-94.0); Platelet Count 274 10^3/uL (130-400); Red Cell Dist. Width 13.0 % (11.5-14.5)
[2025-07-04] MEDS: DECADRON 4 MG IV (09:48)
[2025-07-04 10:33] LABS: Blood Urea Nitrogen 17 mg/dl (9-20); Calcium 9.5 mg/dl (8.4-10.2); Carbon Dioxide 24 mmol/L (22-30); Chloride 99 mmol/L (98-107); Glucose 199 mg/dl (70-99); Magnesium 1.9 mg/dl (1.6-2.3); Potassium 4.3 mmol/L (3.5-5.1); Sodium 133 mmol/L (135-145); eGFR > 60.00
[2025-07-04 11:24] LABS: Glycohemoglobin (HgbA1c) 6.7 % (4.0-5.9)
[2025-07-04 11:38] LABS: Glucose - Point of Care 152 mg/dl (70-99)
[2025-07-04 12:00] VITALS: BP 156/66
--- NOTE | 2025-07-04 12:03 | W.PN.HOSP.TC ---
Today's Communication/Plan
-
IV Solu-Medrol, infectious disease consult, possible discharge home toda
Assessment / Plan
Assessment / Plan
IMPRESSION:
70 years old with history of type 2 diabetes, hypertension, hyperlipidemia, peripheral vascular disease who came to the ER today with left wrist/forearm pain, started yesterday associated with redness, decreased limitation of movement, denies any
fever or chills, patient states that his blood sugars under control.
Left wrist x-ray came back normal
Patient was given Rocephin in the ER, will be admitted under hospitalist service, started on cefazolin
Assessment/plan:
Left wrist cellulitis.
Started on cefazolin.
Left wrist x-ray came back normal
If no improvement consider further
Pain control
07/04
Left wrist pain improved but left hand was more swollen, patient requested if we can try steroid, ordered Solu-Medrol.
Infectious disease consult ordered.
Patient wants to go home today
History�of�diabetes�mellitus
Continue�home�medication
Insulin�sliding�scale
Diabetic�diet
Hemoglobin A1c
History�of�hypertension
Continue home metoprolol
History of hyperlipidemia
Continue�statin
History of PVD
ASA/ Statin
�
CODE STATUS:�Full�code
DVT�prophylaxis:�Lovenox
Diet:�Regular�diet
Family�communication: Discussed with at bedside
Disposition: IV Solu-Medrol, infectious disease consult, possible discharge home today
Total time spent on today's encounter was 55 minutes which included time spent in counseling the patient/family regarding diagnosis and treatment plan as listed above, goals of care, and symptom management. Case was discussed with nursing staff,
specialists, and care coordinators/case management. All labs and imaging personally reviewed by me. Remainder the time spent in detailed review of previous records, lab data, imaging, and other medical provider documentation.
Anticipated Discharge: Today
Subjective/Interval History
-
Date of Service: July 04, 2025
Patient seen and examined at bedside, denies any chest pain or shortness of breath, no abdominal pain, no nausea, no vomiting, no diarrhea or constipation.
Left wrist pain improved but left hand was more swollen, patient requested if we can try steroid, ordered Solu-Medrol.
Infectious disease consult ordered.
Patient wants to go home today
Objective Data
-
Labs:
Laboratory Results
07/04/25
08:23
WBC 11.7 H
Hgb 15.8
Hct 45.6
Plt Count 274
Sodium 133 L
Potassium 4.3
Chloride 99
Carbon Dioxide 24
BUN 17
Creatinine 0.9
Glucose 199 H
Calcium 9.5
Vital Signs:
Vital Signs
Temp Pulse Resp BP Pulse Ox
97.5 F 71 18 138/58 99
07/04/25 08:26 07/04/25 08:26 07/04/25 08:26 07/04/25 08:26 07/04/25 08:30
I&O
07/03/25 07/04/25 07/05/25
06:59 06:59 06:59
Intake Total 480 / 480
Balance 480 / 480
Physical Exam
-
General: Well Developed, Well Nourished, No Apparent Distress and Comfortable
HEENT: Normocephalic, Atraumatic, Moist Mucous Membranes, No Ptosis, PERRLA and Nose Appears Normal
Respiratory: Clear to Auscultation and Non Labored Respirations
Cardiac: Regular Rhythm and S1/S2
Breast: Deferred by me
GI: Soft, Nontender, Nondistended and Normal Bowel Sounds
Genito-urinary: No Costovertebral Tender
Musculoskeletal: No Clubbing and No Cyanosis; Negative No Edema (Left hand edema and tenderness)
Skin: Warm
Neuro: Awake, Alert, Oriented, AO x 3 and No Motor Deficits
Psych: Calm
Data Reviewed
-
Diagnostic Radiology: Image personally visualized and interpreted and Report Reviewed by me
CT Scan: Image personally visualized and interpreted and Report Reviewed by me
Ultrasound: Image personally visualized and interpreted and Report Reviewed by me
MRI: Image personally visualized and interpreted and Report Reviewed by me
Medical Tests (Nuc Med, Echo etc): Image personally visualized and interpreted and Report Reviewed by me
Labs: Labs Reviewed by me
Old Records: Reviewed
--- NOTE | 2025-07-04 13:09 | CON.ID ---
Consultation
-
Date/Time Consultation Requested: July 04, 2025 0905
Date/Time Consultation Performed: July 04, 2025 1300
Requesting Provider: Dr. Thien Coyle
Performing Provider: Dr. Irene Nair
Reason for Consultation: Hand cellulitis
Chief Complaint / Past History
Chief Complaint
Wrist swelling/redness
History of Present Illness
History obtained from the patient as well as from his at bedside. He is a 70-year-old male with history of diabetes mellitus type 2, hypertension, dyslipidemia who presented to the ER on July 03 due to left wrist swelling and redness. He
reports approximately 2 days ago he and his were chopping wood. He wore gloves but not all the time. After the chore, he noted some scratches and bleeding over left proximal thenar. The next day he woke up and noted swelling and redness
forearm to his wrist. No fevers or chills. He came to the ER. X-ray positive DJD. He received ceftriaxone in the ER then started on cefazolin. The forearm erythema and edema have improved. However this morning his left hand became very
edematous. He was started on steroid. Since the steroid dose he reports the edema of the hand has improved 50%. No known history of gout. He states a few years ago he did have cellulitis of his left foot which was treated with a course of
prednisone and antibiotic. He would like to be discharged today.
Past History
Additional Past Medical History:
DM2
HTN
Dyslipidemia
PVD
Spinal stenosis
Ascending aortic aneurysm
Patent foramen ovale repair patch 1994
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
Allergy History:
codeine Allergy (Verified 07/03/25 05:16)
Unknown
HAIR DYE Allergy (Uncoded 07/03/25 05:16)
Hives
Medications Reviewed: Yes
Current Antibiotics:
cefazolin
Social History
Tobacco: Non-Smoker
Alcohol: Daily
Drug: None
Personal:
Living: With Family
Family History
Family History: Not Pertinent
Review of Systems
Review of Systems
General: Negative Fever, Chills or Change in Appetite
Cardiovascular: Negative Chest Pain or Dyspnea
Respiratory: Negative Dyspnea or Cough
Gasteroenterology: Negative Nausea, Vomiting or Diarrhea
Genital / Urological: Negative Dysuria or Flank Pain
Endocrine: Negative Weakness
All systems: All other systems were reviewed and were negative
Vital Signs
Temp Pulse Resp BP Pulse Ox
97.5 F 73 18 156/66 96
07/04/25 12:00 07/04/25 12:00 07/04/25 12:00 07/04/25 12:00 07/04/25 12:00
Physical Exam
Physical Exam
Constitutional: No Acute Distress and Comfortable
Cardiovascular: Regular Rate and S1/S2
Pulmonary: Clear
Gastrointestinal: Soft, Non Tender, Non Distended and Normal Bowel Sounds
Extremities: Other (Left dorsum + 2+ edema, mild erythema, + warmth, few abrasions proximal thumb. ROM wrist and MCP intact. )
Neurological: AO x 3
Lab / Diagnostic Study Results
07/04/25 08:23
07/04/25 08:23
Abs Immat Gran (auto) 0.0 10^3/uL (0-0.05) 07/03/25 07:02
Absolute Neuts (auto) 9.1 10^3/uL (1.4-6.5) H 07/03/25 07:02
Absolute Lymphs (auto) 2.3 10^3/uL (1.2-3.4) 07/03/25 07:02
Absolute Monos (auto) 1.1 10^3/uL (0.1-0.6) H 07/03/25 07:02
Absolute Basos (auto) 0.1 10^3/uL (0-0.2) 07/03/25 07:02
Immature Gran % 0.3 % (0-0.5) 07/03/25 07:02
Neutrophils % 70.9 % (42.2-75.2) 07/03/25 07:02
Lymphocytes % 17.8 % (20.5-51.1) L 07/03/25 07:02
Monocytes % 8.7 % (1.7-9.3) 07/03/25 07:02
Eosinophils % 1.5 % (0-6) 07/03/25 07:02
Basophils % 0.8 % (0-2) 07/03/25 07:02
Microbiology Results
07/03/25 L wrist XRAY: No displaced fracture or cortical destruction appreciated. Degenerative change as above.
Assessment / Plan
# LUE edema/erythema after chopping wood
# Suspect inflammatory process as significant improvement with steroid
# Cannot rule out superimposed cellulitis.
Recommendations:
-Continue course of steroid.
- Can dc on empiric doxycycline 100mg bid +Augmentin 875mg po bid x 7d.
Care Review
Plan reviewed with: Physician (Dr. Coyle)
--- NOTE | 2025-07-04 13:54 | W.DCSUMMARY ---
Discharge Summary
Discharge Data
Date of Admission: 07/03/25
Date of Discharge: 07/04/25
Total time spent discharging patient (in min): 40
-
Pending Results: No
Hospital Course
Hospital course
70 years old with history of type 2 diabetes, hypertension, hyperlipidemia, peripheral vascular disease who came to the ER today with left wrist/forearm pain, started yesterday associated with redness, decreased limitation of movement, denies any
fever or chills, patient states that his blood sugars under control.
Left wrist x-ray came back normal
Patient was given Rocephin in the ER, will be admitted under hospitalist service, started on cefazolin
Symptoms improved with steroid.
Seen by infectious disease.
We discharged on doxycycline/Augmentin for 7 days along with Medrol pack.
During hospitalization patient was treated from the following
Left wrist cellulitis.
Started on cefazolin.
Left wrist x-ray came back normal
If no improvement consider further
Pain control
07/04
Left wrist pain improved but left hand was more swollen, patient requested if we can try steroid, ordered Solu-Medrol.
Infectious disease consult ordered.
Patient wants to go home today
Infectious disease recommending doxycycline/Augmentin twice daily for 7 days.
Patient also will be discharged on Medrol pack
History�of�diabetes�mellitus
Continue�home�medication
Insulin�sliding�scale
Diabetic�diet
Hemoglobin A1c 6.7
History�of�hypertension
Continue home metoprolol
History of hyperlipidemia
Continue�statin
History of PVD
ASA/ Statin
�
CODE STATUS:�Full�code
DVT�prophylaxis:�Lovenox
Diet:�Regular�diet
Family�communication: Discussed with at bedside
Disposition: Discharge home today
Total time spent on today's encounter was 40 minutes which included time spent in counseling the patient/family regarding diagnosis and treatment plan as listed above, goals of care, and symptom management. Case was discussed with nursing staff,
specialists, and care coordinators/case management. All labs and imaging personally reviewed by me. Remainder the time spent in detailed review of previous records, lab data, imaging, and other medical provider documentation.
Anticipated Discharge: Today
Discharge Plan
-
Patient Disposition: Home (Routine Discharge)
Discharge Diagnosis/Procedures: Left wrist cellulitis.
diabetes mellitus
Diet: Diabetic, Carb Controlled
Activity: As tolerated
Referrals:
Nina Brady MD [Family Provider, [facility]]
Prescriptions:
New
doxycycline hyclate 100 mg capsule
100 mg PO BID Qty: 14 0RF
methylprednisolone [Medrol (Andre)] 4 mg tablets,dose pack
See Rx Instructions .ROUTE .COMPLEX Qty: 21 0RF
Rx Instructions:
for 6 days
amoxicillin-pot clavulanate 875-125 mg tablet
1 tab PO BID Qty: 14 0RF
Continued
glipizide 10 mg Tablet Extended Release 24hr
10 mg PO DAILY
cyanocobalamin (vitamin B-12) 1,000 mcg Tablet
1,000 mcg PO DAILY
aspirin 81 mg Tablet,Delayed Release (Dr/Ec)
81 mg PO QPM
ascorbic acid (vitamin C) [Vitamin C] 500 mg Tablet
500 mg PO DAILY
terazosin 2 mg Capsule
2 mg PO HS
metoprolol succinate [Toprol XL] 25 mg Tablet Extended Release 24 Hr
25 mg PO HS
metformin 500 mg Tablet Extended Release 24 Hr
500 mg PO BID
garlic 400 mg Tablet
400 mg PO DAILY
rosuvastatin [Crestor] 20 mg Tablet
20 mg PO QPM
coQ10 (ubiquinol) 100 mg Capsule
100 mg PO DAILY
dapagliflozin propanediol [Farxiga] 10 mg Tablet
10 mg PO DAILY
sacubitril-valsartan [Entresto] 24-26 mg Tablet
1 tab PO BID
Ozempic 0.25 mg or 0.5 mg (2 mg/3 mL) Pen Injector
0.25 mg SC LUND
Rx Instructions:
for 4 weeks
Discharge Orders:
Discharge Patient (As Directed); Ordered 07/04/25
Ordered By: Thien Coyle
Discharge Date and Time
Print Language: HEBREW
--- NOTE | 2025-07-04 14:10 | CM ---
Pt is discharged home with no needs. will transport pt home
[2025-07-04 14:51] LABS: Uric Acid 4.5 mg/dl (3.5-8.5)
== END 2025-07-04 14:34 | disposition home or self-care (01) ==
LOC: 4 EAST ACU 09:54
PROVIDERS: ADMITTING PHYSICIAN General Practice; CONSULT PHYSICIAN Internal Medicine Infectious Disease; EMERGENCY PHYSICIAN Student in an Organized Health Care Education/Training Program; FAMILY PHYSICIAN Family Medicine
DX: L03.114 Cellulitis of left upper limb (principal); E11.51 Type 2 diabetes mellitus with diabetic peripheral angiopathy without gangrene; Z88.5 Allergy status to narcotic agent; Z79.899 Other long term (current) drug therapy; Z79.82 Long term (current) use of aspirin; Z79.84 Long term (current) use of oral hypoglycemic drugs; Z79.85 Long-term (current) use of injectable non-insulin antidiabetic drugs; I10 Essential (primary) hypertension; E78.00 Pure hypercholesterolemia, unspecified; I25.10 Atherosclerotic heart disease of native coronary artery without angina pectoris
CPT/HCPCS: 73110; 80048; 80053; 82962; 83036; 83735; 84550; 85025; 85027; 96374; 99285; G0378